=== PATIENT | male | born 1985 | race Caucasian/White ===

== ENCOUNTER 2018-11-16 14:59 | Emergency (ER) | payer MEDICAID ==
[2018-11-16] MEDS ORDERED: Clindamycin CAP* 150 MG PO ONE (15:56)
--- NOTE | 2018-11-16 15:58 | ED ---
Throat Pain/Nasal Congestion - HPI Summary HPI Summary: 33-year-old male presents with dental pain for the past couple days. He states that he had dental infection 2 weeks ago and was placed on amoxicillin. He states that it resolved but now is returning. He does not currently have dentist's dental insurance till December 11. He denies any fevers. No chest pain or shortness breath. No sore throat. No difficulty swallowing. Has been taking Tylenol ibuprofen for pain. - History of Current Complaint Chief Complaint: EDDentalPain Time Seen by Provider: 11/16/18 15:32 - Allergies/Home Medications Allergies/Adverse Reactions: Allergies Allergy/AdvReac Type Severity Reaction Status Date / Time No Known Allergies Allergy Verified 11/16/18 15:12 PMH/Surg Hx/FS Hx/Imm Hx Endocrine/Hematology History: Denies: Hx Anticoagulant Therapy Cardiovascular History: Denies: Hx Myocardial Infarction Psychiatric History: Reports: Hx Attention Deficit Hyperactivity Disorder, Hx Suicide Attempt Denies: Hx Anxiety, Hx Eating Disorder, Hx Depression, Hx Panic Disorder, Hx Post Traumatic Stress Disorder, Hx Inpatient Treatment, Hx Community Mental Health Tx, Hx Schizophrenia, Hx Bipolar Disorder, Hx of Violent Episodes Against Others, Hx Substance Abuse, Other Psychiatric Issues/Disorders - Immunization History Date of Tetanus Vaccine: Unknown Date of Influenza Vaccine: Unknown Infectious Disease History: No Infectious Disease History: Denies: Hx Clostridium Difficile, Hx Hepatitis, Hx Human Immunodeficiency Virus (HIV), Hx of Known/Suspected MRSA, Hx Shingles, Hx Tuberculosis, Hx Known/ Suspected VRE, Hx Known/Suspected VRSA, History Other Infectious Disease, Traveled Outside the [place] in Last 30 Days - Family History Known Family History: Positive: Non-Contributory - Social History Alcohol Use: None Substance Use Type: Reports: None Smoking Status (MU): Never Smoked Tobacco Review of Systems Negative: Fever Positive: Dental Pain Negative: Chest Pain Negative: Shortness Of Breath All Other Systems Reviewed And Are Negative: Yes Physical Exam Triage Information Reviewed: Yes Vital Signs On Initial Exam: Initial Vitals Temp Pulse Resp BP Pulse Ox 97.9 F 76 18 130/75 98 11/16/18 15:10 11/16/18 15:10 11/16/18 15:10 11/16/18 15:10 11/16/18 15:10 Vital Signs Reviewed: Yes Appearance: Positive: Well-Appearing Skin: Positive: Warm, Dry Head/Face: Positive: Normal Head/Face Inspection Eyes: Positive: Normal, EOMI, ERICA, Conjunctiva Clear ENT: Positive: Normal ENT inspection, Pharynx normal, TMs normal Dental: Positive: Percussion Tenderness @ - 19, 20 with erythema around area Neck: Positive: Supple, Nontender, No Lymphadenopathy Respiratory/Lung Sounds: Positive: Clear to Auscultation, Breath Sounds Present Cardiovascular: Positive: Normal, RRR Abdomen Description: Positive: Nontender, Soft Bowel Sounds: Positive: Present Musculoskeletal: Positive: Normal Neurological: Positive: Normal Psychiatric: Positive: Normal Diagnostics - Vital Signs Vital Signs Temp Pulse Resp BP Pulse Ox 11/16/18 15:10 97.9 F 76 18 130/75 98 - Laboratory Lab Statement: Any lab studies that have been ordered have been reviewed, and results considered in the medical decision making process. EENT Course/Dx - Course Course Of Treatment: 33-year-old male presents with dental pain for the past couple days. He states that he had dental infection 2 weeks ago and was placed on amoxicillin. He states that it resolved but now is returning. He does not currently have dentist's dental insurance till December 11. He denies any fevers. No chest pain or shortness breath. No sore throat. No difficulty swallowing. Has been taking Tylenol ibuprofen for pain. On exam has tenderness over tooth 19-20. No abscess felt but erythema to the area. We'll treat with clindamycin. told needs to follow up with dentist as soon as possible. warned of signs to return to ED for. Patient understands agrees with plan. - Differential Diagnoses Differential Diagnoses: Dental Abscess, Dental Caries, Fractured Tooth - Diagnoses Provider Diagnoses: Dental infection Discharge - Sign-Out/Discharge Documenting (check all that apply): Patient Departure Patient Received Moderate/Deep Sedation with Procedure: No - Discharge Plan Condition: Good Disposition: HOME Prescriptions: Clindamycin Cap(NF) [Clindamycin Cap 300 mg Cap(NF)] 300 mg PO TID #29 cap Patient Education Materials: Dental Abscess (ED) Referrals: Saloni Florentino MD [Primary Care Provider] - Additional Instructions: Take clindamycin three times a day for 7 days Take ibuprofen or tyenlol every 6 hours for pain as needed Avoid hard, crunchy food until seen by dentist Return to ED if develop fever, shortness of breath, pain with eye movement or swelling around eye Establish care with dentist as soon as possible - Billing Disposition and Condition Condition: GOOD Disposition: Home Images - Images Dental: 1 - pain
[2018-11-16 16:09] VITALS: BP 120/67
== END 2018-11-16 16:08 | disposition home or self-care (01) ==
LOC: ED 14:59
DX: K04.7 Periapical abscess without sinus (principal)
CPT/HCPCS: 99282; A9270-GY